=== PATIENT | male | born 1965 | race African-American/Black ===

== ENCOUNTER 2021-11-14 12:32 | Outpatient (CLI) | payer OTHER ==
[2021-11-14 13:27] LABS: POTASSIUM 4.2 mmol/L (3.6-5.2)
== END 2021-11-14 18:55 | disposition home or self-care (01) ==
LOC: CT 12:32
PROVIDERS: ATTEND Nurse Practitioner Family
DX: R10.32 Left lower quadrant pain (principal)
CPT/HCPCS: 80053; 82150; 82550; 83690; Q9963